=== PATIENT | female | born 1990 | race Caucasian/White ===

== ENCOUNTER → 2019-10-10 15:27 | Outpatient (BNVA) | payer SELFPAY | PROVIDERS: Family Provider Nurse Practitioner Family; PCP Nurse Practitioner Family; Visit Provider Obstetrics & Gynecology | DX: R87.611 Atypical squamous cells cannot exclude high grade squamous intraepithelial lesion on cytologic smear of cervix (ASC-H) (principal); N89.8 Other specified noninflammatory disorders of vagina | CPT/HCPCS: 87210; 88175 ==

== ENCOUNTER 2020-05-19 15:29 | Outpatient (CLI) | payer BC, SELFPAY ==
--- NOTE | 2020-05-19 | USCV_ITS ---
Sallie Palm Age: 30 Gender: F : 1990 Exam Date: 05/19/2020 16:01 Ordering Phys: Ubaldo Paez MD ([email or web address]) Technologist: Elva Spangler Exam Location: [facility] [place] Indication: KNOWN PUL. STENOSIS BP: 106 / 60 HR: 62 Rhythm: Sinus Technical Quality: Adequate MEASUREMENTS (Male / Female) Normal Values 2D ECHO LV Diastolic Diameter PLAX 4.6 cm 4.2 - 5.9 / 3.9 - 5.3 cm LV Systolic Diameter PLAX 3.0 cm LV Chamber Size 3.6 cm IVS Diastolic Thickness 0.7 cm 0.6 - 1.0 / 0.6 - 0.9 cm IVS Systolic Thickness 1.3 cm LVPW Diastolic Thickness 1.0 cm 0.6 - 1.0 / 0.6 - 0.9 cm LVPW Systolic Thickness 1.3 cm RV Chamber Size 2.8 cm LVOT Diameter 2.0 cm LV Ejection Fraction 2D Teich 66.0 % LV Ejection Fraction MOD 2C 67.4 % LV Ejection Fraction 2C AL 67.3 % LA Diameter 3.0 cm LA Width 2.5 cm LA Height 3.5 cm RA Width 3.5 cm RA Height 3.7 cm Aorta at Sinotubular Diameter 2.5 cm M-MODE Aortic Annulus Diameter 3.0 cm LA Ao Ratio MM 1.1 MV E Point Septal Separation 0.3 cm DOPPLER AV Peak Velocity 123.0 cm/s LVOT Peak Velocity 79.0 cm/s AV Area Cont Eq vti 1.8 cm squared AV Area Cont Eq pk 2.0 cm squared MV Area PHT 8.1 cm squared Mitral E to A Ratio 1.3 MV E' Velocity 63.0 cm/s Mitral E to MV E' Ratio 6.7 Mitral E to LV E' Lateral Ratio 5.7 Mitral E to LV E' Septal Ratio 8.3 TR Peak Velocity 150.3 cm/s TR Peak Gradient 9.0 mmHg TR Mean Velocity 114.4 cm/s TR Mean Gradient 5.8 mmHg TR Velocity Time Integral 32.9 cm TV Peak E Velocity 66.0 cm/s Right Atrial Pressure 5.0 mmHg Pulmonary Artery Systolic Pressu 14.0 mmHg PV Peak Velocity 61.0 cm/s RV Acceleration Time 0.2 s RV Ejection Time 0.3 s RV AcT/ET 0.5 FINDINGS Left Ventricle Normal left ventricular size and systolic function, EF 55 %. No regional wall motion abnormalities. Right Ventricle The right ventricle is normal in size and function. Right Atrium The right atrium is normal in size. Left Atrium The left atrium is normal in size. Mitral Valve No gross abnormalities noted Aortic Valve No gross abnormalities noted Tricuspid Valve Trace to mild tricuspid valve regurgitation. Estimated pulmonary artery peak systolic pressure of 14 mmHg Pulmonic Valve Mild pulmonary valve regurgitation. Pericardium Normal pericardium without effusion. Aorta Normal ascending aorta dimension. CONCLUSIONS Normal left ventricular size and systolic function, EF 55 %. No regional wall motion abnormalities. Trace to mild tricuspid valve regurgitation. Estimated pulmonary artery peak systolic pressure of 14 mmHg. Mild pulmonary valve regurgitation. There is no pericardial effusion. There are no intracardiac masses. There are no prior echocardiogram studies to compare. Dr Ubaldo Paez MD [facility] (Electronically Signed) Final Date: 19 May 2020 23:21 S
--- NOTE | 2020-05-26 11:00 | USCV_ITS ---
Sallie Palm Age: 30 Gender: F : 1990 Exam Date: 05/26/2020 11:55 Ordering Phys: Ubaldo Paez MD ([email or web address]) Technologist: Ramsey Fletcher [place] [facility] [place]ication: PULMONIC STENOSIS BP: / HR: 68 Rhythm: Sinus Technical Quality: Good MEASUREMENTS (Male / Female) Normal Values DOPPLER LVOT Peak Velocity 109.0 cm/s PV Peak Velocity 232.0 cm/s RV Acceleration Time 0.1 s RV Ejection Time 0.4 s RV AcT/ET 0.3 FINDINGS Left Ventricle Right Ventricle Right Atrium Left Atrium Mitral Valve Aortic Valve Tricuspid Valve Pulmonic Valve The pulmonic valve Doppler examination was repeated. Significant systolic flow turbulence was noted at the level of the pulmonic valve. Peak velocity of the pulmonic valve is 2.9 cm/s with a peak gradient of 35 mmHg. The mean gradient was around 14 mmHg. Mild pulmonic regurgitation also was noted Pericardium Aorta CONCLUSIONS 1. Features of mild pulmonic valve stenosis with a peak gradient of 35 and a mean gradient of 14 mmHg(peak velocity of 2.9 m/s) 2. Mild pulmonic regurgitation Dr Ubaldo Paez MD [facility] (Electronically Signed) Final Date: 26 May 2020 21:12 S
== END 2020-05-19 15:30 | disposition home or self-care (01) ==
PROVIDERS: Family Provider Nurse Practitioner Family; PCP Nurse Practitioner Family; Visit Provider Internal Medicine Cardiovascular Disease
DX: R07.89 Other chest pain (principal); I37.1 Nonrheumatic pulmonary valve insufficiency; I07.1 Rheumatic tricuspid insufficiency
CPT/HCPCS: 88175; 93306

== ENCOUNTER 2020-05-26 11:32 | Outpatient (CLI) | payer BC, SELFPAY ==
--- NOTE | 2020-05-26 | USCV_ITS ---
Sallie Palm Age: 30 Gender: F : 1990 Exam Date: 05/26/2020 11:55 Ordering Phys: Ubaldo Paez MD Technologist: Ramsey Fletcher [place] [facility] [place]: PULMONIC STENOSIS BP: / HR: 68 Rhythm: Sinus Technical Quality: Good MEASUREMENTS (Male / Female) Normal Values DOPPLER LVOT Peak Velocity 109.0 cm/s PV Peak Velocity 232.0 cm/s RV Acceleration Time 0.1 s RV Ejection Time 0.4 s RV AcT/ET 0.3 FINDINGS Left Ventricle Right Ventricle Right Atrium Left Atrium Mitral Valve Aortic Valve Tricuspid Valve Pulmonic Valve The pulmonic valve Doppler examination was repeated. Significant systolic flow turbulence was noted at the level of the pulmonic valve. Peak velocity of the pulmonic valve is 2.9 cm/s with a peak gradient of 35 mmHg. The mean gradient was around 14 mmHg. Mild pulmonic regurgitation also was noted Pericardium Aorta CONCLUSIONS 1. Features of mild pulmonic valve stenosis with a peak gradient of 35 and a mean gradient of 14 mmHg(peak velocity of 2.9 m/s) 2. Mild pulmonic regurgitation Dr Ubaldo Paez MD [facility] (Electronically Signed) Final Date: 26 May 2020 21:12 MTDD
== END 2020-05-26 11:33 | disposition home or self-care (01) ==
PROVIDERS: PCP Nurse Practitioner Family; Visit Provider Internal Medicine
DX: I37.1 Nonrheumatic pulmonary valve insufficiency (principal)
CPT/HCPCS: 93308

== ENCOUNTER → 2020-07-07 13:09 | Outpatient (BNVA) | payer BC, SELFPAY | PROVIDERS: Family Provider Nurse Practitioner Family; PCP Nurse Practitioner Family; Visit Provider Obstetrics & Gynecology | DX: R87.610 Atypical squamous cells of undetermined significance on cytologic smear of cervix (ASC-US) (principal); R87.612 Low grade squamous intraepithelial lesion on cytologic smear of cervix (LGSIL) | CPT/HCPCS: 81025; 88305 ==

== ENCOUNTER → 2021-05-25 08:32 | Outpatient (BNVA) | payer BC, SELFPAY | PROVIDERS: Family Provider Nurse Practitioner Family; PCP Nurse Practitioner Family; Visit Provider Obstetrics & Gynecology | DX: Z12.4 Encounter for screening for malignant neoplasm of cervix (principal); N93.9 Abnormal uterine and vaginal bleeding, unspecified; N93.0 Postcoital and contact bleeding | CPT/HCPCS: 83525; 84443; 87624 ==

== ENCOUNTER → 2021-07-03 14:24 | Outpatient (BNVA) | payer BC, SELFPAY | PROVIDERS: Family Provider Nurse Practitioner Family; PCP Nurse Practitioner Family; Visit Provider Obstetrics & Gynecology | DX: N93.9 Abnormal uterine and vaginal bleeding, unspecified (principal); N94.10 Unspecified dyspareunia | CPT/HCPCS: 76830; 83036 ==

== ENCOUNTER → 2022-01-21 14:13 | Outpatient (BNVA) | payer BC, SELFPAY | PROVIDERS: Family Provider Nurse Practitioner Family; PCP Nurse Practitioner Family; Visit Provider Obstetrics & Gynecology | DX: R10.2 Pelvic and perineal pain (principal) | CPT/HCPCS: 81025 ==

== ENCOUNTER 2022-03-30 07:26 | Day surgery (SDC) | payer BC, SELFPAY ==
[2022-03-29 09:08] VITALS: BMI 30.4
--- NOTE | 2022-03-29 09:12 | ECG_ITS ---
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 Measurements Intervals [place] Rate: 65 P: 49 OK: 189 QRS: 14 QRSD: 97 T: 48 QT: 383 QTc: 398 Interpretive Statements SINUS RHYTHM LOW QRS VOLTAGE IN PRECORDIAL LEADS [QRS DEFLECTION < 1.0 mV IN CHEST LEADS] INCOMPLETE RIGHT BUNDLE BRANCH BLOCK [90+ ms QRS DURATION, TERMINAL R IN V1/V2, 40+ ms S IN I/aVL/V4/V5/V6] No previous ECG available for comparison Electronically Signed On 03-29-2022 20:36:37 [employer] by Ubaldo Paez M.D. [id number]
--- NOTE | 2022-03-29 09:24 | P.ANESASSM_ITS ---
Pre-Anesthetic Assessment Height/Weight: Height 1.52 m Weight 70.76 kg Preop Diagnosis: irregular menses, bleeding after intercourse Operation Date: 03/30/22 09:05 Proposed Procedures p Hysteroscopy, dilation and curettage with Myosure, Conization of cervix 30547 N93.9(Not Applicable) - Tiffanie Mak MD s Dilation And Curettage (D&C)(Not Applicable) - Tiffanie Mak MD s Cervical Conization(Not Applicable) - Tiffanie Mak MD Familial anesthetic complications: None Social Tobacco and No alcohol Exam alert, oriented x 3, clear to auscultation bilaterally and regular rate & rhythm Airway Mallampati: Class II Dentition: full CV/HEM pulmonic stenosis - not having any cardiac symptom, spoke with Dr. Paez. Since not having any symptoms and based on 2020 echo, no further investigation needed Anesthetic Plan ASA status: 2 Anesthesia: General Risk of > 500 ml blood loss (7ml/kg in children): No Medications/Allergies Home Medications Medication Instructions Recorded Confirmed Last Taken Type No Known Home Medications 03/29/22 03/29/22 Unknown History Allergies Allergy/AdvReac Type Severity Reaction Status Date / Time pseudoephedrine AdvReac Unknown increase Verified 03/25/22 15:25 heart rate guaifenesin [From Mucinex] AdvReac increased Verified 03/25/22 15:25 heart rate [facility] Anesthesia Medical History Anxiety Depression Pulmonic stenosis Tobacco abuse Surgical History No pertinent past surgical history Family History Grandfather Hypercholesteremia paternal Diabetes paternal Unknown Hypertension paternal side in general Heart disease paternal and maternal side Cancer breast and cervical Social History Smoking and tobacco status: current some day smoker e-cigarettes E-Cigarette Details: vaporizer device Alcohol intake: current Alcohol intake frequency: holidays/special occasions only Female Reproductive History Date of last menstrual period: 02/18/22 Data Anesthesia Cardiac Studies: Echocardiogram Limited Views 05/26/20 Echocardiogram Ultrasound 05/19/20 Cardiac Event Monitor 04/29/20
[2022-03-30] VITALS (14 sets, daily range): BP systolic 102–126; BP diastolic 64–97; PULSE 74–112; RESP 16–18; TEMP 36.2–36.9; O2SAT 95–100
[2022-03-30 07:40] LABS: OR HCG Qualitative Urine Negative (Negative)
[2022-03-30] MEDS: sodium chloride 0.9% 1,000 ML 30 ML IV (07:46)
--- NOTE | 2022-03-30 07:59 | P.ANESUD_ITS ---
Pre-Anesthetic Update Pre-Anesthetic Assessment: Date of Surgery/Procedure: 03/30/22 Preop Zainab gnosis: irregular menses, bleeding after intercourse Proposed Procedure: Operation Date: 03/30/22 09:05 Proposed Procedures p Hysteroscopy, dilation and curettage with Myosure, Conization of cervix 88077 N93.9(Not Applicable) - Tiffanie Mak MD s Dilation And Curettage (D&C)(Not Applicable) - Tiffanie Mak MD s Cervical Conization(Not Applicable) - Tiffanie Mak MD Any changes to Pre-Anesthetic Assessment?: No Last Intake: Intake Last Liquid Date 03/29/22 Last Liquid Time 22:00 Last Solid Date 03/29/22 Last Solid Time 16:00 Vitals: Temperature 98.5 F 03/30/22 07:43 Temperature Source Temporal Artery S can 03/30/22 07:43 Pulse Rate 74 03/30/22 07:43 Respiratory Rate 18 03/30/22 07:43 Blood Pressure 108/76 03/30/22 07:43 Blood Pressure Shelley n 86 03/30/22 07:43 Pulse Oximetry 96 03/30/22 07:43 Oxygen Delivery Me thod 03/30/22 07:43 Exam: Pre-Anes Outpt Exam: alert, oriented x 3, clear to auscultation bilaterally and regular rate & rhythm Cardiac Studies: Echocardiogram Limited Views 05/26/20 Echocardiogram Ultrasound 05/19/20 Cardiac Event Monitor 04/29/20
--- NOTE | 2022-03-30 08:53 | W.PM.OPSUD ---
Surgery/Procedure H&P Update DATE OF PROCEDURE: March 30, 2022 DATE H&P PERFORMED: 03/25/22 H&P UPDATE INFORMATION: I have reviewed H&P completed within last 30 days, I have examined patient prior to procedure and No changes to prior documentation PREOP DIAGNOSIS: irregular menses, bleeding after intercourse PLANNED PROCEDURE: Operation Date: 03/30/22 09:05 Proposed Procedures p Hysteroscopy, dilation and curettage with Myosure, Conization of cervix 05081 N93.9(Not Applicable) - Tiffanie Mak MD s Dilation And Curettage (D&C)(Not Applicable) - Tiffanie Mak MD s Cervical Conization(Not Applicable) - Tiffanie Mak MD Related Problem List Diagnoses (1) Bleeding after intercourse: (2) Irregular menses:
[2022-03-30] MEDS: ceFAZolin 2,000 MG in sodium chloride 0.9% (plus) 50 ML 100 MG IV (09:02)
--- NOTE | 2022-03-30 09:54 | PM.OP ---
Operative Report Date of procedure: March 30, 2022 Pre-op diagnosis: Preop Diagnosis irregular menses, bleeding after intercourse Post-op diagnosis: same Procedure done: hysteroscopy, D&C with myosure, cauterization of ectropion Specimens removed/disposition: endometrial curettings to pathology Surgeon: Tiffanie Mak Anesthesia: MAC Estimated blood loss (mL): 0 IV fluids (mL): 600 Urine output (mL): 0 Complications: none Condition: stable Disposition: PACU Procedure: The patient was taken to the operating room where monitored anesthesia was administered and to be adequate. She was prepped and draped in the normal sterile fashion in the dorsal lithotomy position in [facility]. A weighted speculum was placed into the vagina and the anterior lip of the cervix grasped with a single-tooth tenaculum. The uterus was sounded to 7 cm. The cervix was dilated to 16 Thai. The hysteroscope was advanced into the endometrial cavity. There was excessive tissue and polyps visualized. The MyoSure device was activated and the tissue was removed. Pictures were taken pre and post procedure. Attention was then turned to the cervical portion of the procedure. The ectropion was identified and cauterized with the bovie cautery. There was excellent hemostasis. All instruments were removed. The patient tolerated the procedure well. Sponge lap and needle counts were correct x3. She was taken to the recovery room in stable condition.
[2022-03-30] MEDS: ketorolac 30 mg/mL INJ (09:56)
[2022-03-30] MEDS: fentaNYL 50 mcg/mL INJ 2mL 100 MCG IVP (09:56)
--- NOTE | 2022-03-30 10:00 | PM.DCS ---
Discharge Providers Date of Admission: 03/30/22 Date of Discharge: March 30, 2022 Attending Provider at Admission: Dr. Mak Attending Provider at Discharge: Tiffanie Mak MD Primary Care Provider: Justyna Bonner APN Diagnoses at Discharge Discharge Diagnosis (1) Bleeding after intercourse: Status: Acute (2) Irregular menses: Status: Acute Reason for Visit Reason for Visit: abnormal uterine and vaginal bleeding, unspecified Hospital Course Hospital Course The patient was admitted for surgery. She did well postoperatively and was ready for discharge. Discharge Data Studies Completed and Pending Pending at discharge Category Date Time Status Pathology: Surgical [PTH] Routine Pth 03/30/22 09:54 Ordered Laboratory Results Urine HCG, Qual Negative (Negative) 03/30/22 07:32 Vitals Last Vital Signs Temp 98.5 F 03/30/22 07:43 Pulse 74 03/30/22 07:43 Resp 18 03/30/22 07:43 BP 108/76 03/30/22 07:43 Pulse Ox 96 03/30/22 07:43 O2 Del Method 03/30/22 07:43 Discharge Plan Discharge Patient Disposition: Home Condition: Stable Prescriptions: Continued No Known Home Medications Discharge Orders: Discharge Order (Routine); Ordered 03/30/22 Ordered By: Tiffanie Mak Referrals: Tiffanie Mak MD [Physician] - Patient Instructions: Post Anesthesia Care Discharge Attestations Time Spent in Discharge Care*: less than 30 min Quality Metrics Clinical Quality Measures [ No reported AMI, CVA or VTE this stay] Coding Level of Care Code Acute Chg FW DC note Diagnoses Bleeding after intercourse N93.0 Irregular menses N92.6
[2022-03-30] MEDS: ondansetron 2 mg/ML SDV 2 mL 4 MG IVP (10:04)
[2022-03-30] MEDS: fentaNYL 50 mcg/mL INJ 2mL IVP (10:06)
[2022-03-30] MEDS: HYDROmorphone 1 mg/mL INJ 1 mL 0.5 MG IVP (10:17)
--- NOTE | 2022-03-30 14:08 | ANE.PACU2 ---
Inpatient post-anesthesia follow up: Airway intact: Yes Vital signs: Temperature 97.6 F Pulse Rate 76 Respiratory Rate 18 Blood Pressure 107/74 Pulse Oximetry 100 Oxygen Delivery Me thod Room Air Oxygen Flow Rate 6 Fraction of Inspir ed Oxygen Hydration adequate: Yes Nausea and vomiting: No Pain level: 1 Mental status: Baseline
== END 2022-03-30 11:24 | disposition home or self-care (01) ==
PROVIDERS: Anesthesiology; PCP Nurse Practitioner Family; Visit Provider Obstetrics & Gynecology
PROC: 0UDB8ZZ Extraction of Endometrium, Via Natural or Artificial Opening Endoscopic (ICD-10-PCS; CPT 58558; principal; 2022-03-30 08:55)
PROC: (CPT 58120; 2022-03-30 08:55)
PROC: 0UBC7ZZ Excision of Cervix, Via Natural or Artificial Opening (ICD-10-PCS; CPT 57520; 2022-03-30 08:55)
DX: N92.6 Irregular menstruation, unspecified (principal); N93.0 Postcoital and contact bleeding; F17.290 Nicotine dependence, other tobacco product, uncomplicated
CPT/HCPCS: 58558; 81025; 84703; 88305; 93005; J0690; J1100; J1170; J1885; J2405; J2704; J3010; J7030

== ENCOUNTER → 2023-02-22 15:07 | Outpatient (BNVA) | payer BC, SELFPAY | PROVIDERS: PCP Nurse Practitioner Family; Visit Provider Nurse Practitioner Family | DX: N93.0 Postcoital and contact bleeding (principal); N89.8 Other specified noninflammatory disorders of vagina | CPT/HCPCS: 81003; 87491; 87591; 87661 ==

== ENCOUNTER → 2023-06-29 16:17 | Outpatient (BNVA) | payer BC, SELFPAY | PROVIDERS: PCP Nurse Practitioner Family; Visit Provider Nurse Practitioner Women's Health | DX: Z11.3 Encounter for screening for infections with a predominantly sexual mode of transmission (principal); Z13.0 Encounter for screening for diseases of the blood and blood-forming organs and certain disorders involving the immune mechanism; Z13.1 Encounter for screening for diabetes mellitus; Z13.228 Encounter for screening for other metabolic disorders; Z12.4 Encounter for screening for malignant neoplasm of cervix; N64.52 Nipple discharge | CPT/HCPCS: 80053; 83036; 84146; 84439; 84443; 85025; 86592; 86803; 87340; 87491; 87591; 87624; 87806 ==

== ENCOUNTER → 2023-07-05 08:10 | Outpatient (BNVA) | payer BC, SELFPAY | PROVIDERS: PCP Nurse Practitioner Family; Visit Provider Nurse Practitioner Women's Health | DX: N64.52 Nipple discharge (principal) | CPT/HCPCS: 84146 ==

== ENCOUNTER 2023-07-28 15:34 | Outpatient (CLI) | payer BC, SELFPAY ==
--- NOTE | 2023-07-28 16:00 | MR_ITS ---
WS: [id number] MRI HEAD WITH CONTRAST TECHNIQUE: Sagittal T1, T2 axial, T2 axial FLAIR, axial susceptibility weighted imaging, axial diffus ion weighted images, and coronal T2 images were obtained. Pre and post-T1 axial and post T1 coronal i mages. ADC and FSPGR images. CLINICAL INFORMATION: R79.89 - Other specified abnormal findings of blood chemi... COMPARISON: None. FINDINGS: No evidence of restricted diffusion to suggest acute ischemia. Ventricular system and basilar cistern s are patent. Normal posterior fossa. Normal vascular flow voids at the skull base. No extra-axial fl uid collections. No evidence of mass or mass effect. Paranasal sinuses and mastoid air cells are well aerated. Normal posterior nasopharynx. No suspicious intracranial signal abnormalities. No hemosiderin on the susceptibly weighted images. N ormal optic chiasm and pituitary infundibulum. Temporal lobe and hippocampal formations are normal in appearance. Normal cavernous sinuses and Meckel's cave. No abnormal intracranial enhancement. Normal dural venous sinuses. Incidental venous angioma in the c erebellum. Slight fullness in the RIGHT aspect of the pituitary. This is indeterminant on this standard MRI head . Recommend MRI of the head without and with gadolinium enhancement with pituitary protocol and dynam ic pituitary imaging especially if suspicion for microadenoma MR/MR head wo/w con [id number] IMPRESSION: 1. No evidence of restricted diffusion to suggest acute ischemia. 2. No suspicious intracranial signal normalities. 3. No hemosiderin on the susceptibly weighted images. 4. No abnormal intracranial enhancement. 5. Normal optic chiasm and pituitary infundibulum. 6. 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 7. Slight fullness in the RIGHT aspect of the sella is indeterminate and could be incidental but incompletely evaluated on this study. Recommend further eval uation with MRI of the head without and with gadolinium enhanced with pituitary protocol and dynamic pituitary imaging, especially if clinical or laboratory s uspicion for microadenoma.
[2023-07-28] MEDS: gadobenate dimeglumine 20 mL vial IV (16:14)
== END 2023-07-28 15:35 | disposition home or self-care (01) ==
LOC: RAD 15:36
PROVIDERS: PCP Nurse Practitioner Family; Visit Provider Nurse Practitioner Women's Health
DX: R79.89 Other specified abnormal findings of blood chemistry (principal); N64.52 Nipple discharge
CPT/HCPCS: 70553; A9577

== ENCOUNTER 2024-08-06 12:03 | Outpatient (CLI) | payer MEDICAID, SELFPAY ==
--- NOTE | 2024-08-06 12:05 | USCV_ITS ---
Sallie Palm Age: 34 Gender: F : 1990 Exam Date: 08/06/2024 12:27 Ordering Phys: Alejo Castellano MD Technologist: Exam [place] [facility] [place]ication: murmur BP: 120 / 70 HR: 104 Rhythm: Sinus Technical Quality: Adequate MEASUREMENTS (Male / Female) Normal Values 2D ECHO LV Diastolic Diameter PLAX 4.2 cm 4.2 - 5.9 / 3.9 - 5.3 cm IVS Diastolic Thickness 0.8 cm 0.6 - 1.0 / 0.6 - 0.9 cm IVS Systolic Thickness 1.1 cm LVPW Diastolic Thickness 1.3 cm 0.6 - 1.0 / 0.6 - 0.9 cm LVPW Systolic Thickness 1.5 cm LVOT Diameter 2.0 cm LV Ejection Fraction 2D Teich 64.6 % LV Ejection Fraction MOD 4C 66.6 % LV Ejection Fraction MOD 2C 57.1 % LV Ejection Fraction 2C AL 54.9 % LA Diameter 3.1 cm RA Systolic Volume 4C AL 17.0 ml RA Systolic Volume 4C MOD 17.1 ml Aorta at Sinotubular Diameter 2.4 cm M-MODE LA Ao Ratio MM 1.3 AV Cusp Separation MM 2.0 cm DOPPLER AV Peak Velocity 129.0 cm/s LVOT Peak Velocity 81.0 cm/s AV Area Cont Eq vti 2.7 cm squared AV Area Cont Eq pk 2.0 cm squared MV Peak Velocity 89.0 cm/s MV Area PHT 8.0 cm squared Mitral E to A Ratio 0.7 TV Peak Velocity 159.5 cm/s TR Peak Velocity 160.0 cm/s TR Peak Gradient 10.2 mmHg TV Peak E Velocity 90.0 cm/s PV Peak Velocity 202.0 cm/s FINDINGS Left Ventricle Normal LV size ejection fraction of 60%. Mild hypokinesia of the basal septum Right Ventricle The right ventricle is normal in size and function. Right Atrium The right atrium is normal in size. Left Atrium The left atrium is normal in size. Mitral Valve No gross abnormalities noted Aortic Valve Structurally normal trileaflet aortic valve. Tricuspid Valve Structurally normal tricuspid valve. Pulmonic Valve Trace pulmonary valve regurgitation. Elevated velocities the pulmonic valve of 2.02 m/s with a peak gradient of 16 mmHg Pericardium Normal pericardium without effusion. Aorta Normal ascending aorta dimension. IVC The inferior vena cava appears normal. CONCLUSIONS Normal LV size ejection fraction of 60%. Mild hypokinesia of the basal septum. Mild pulmonic valve stenosis with a peak velocity of 2.02 m/s and a peak gradient of 16 mmHg Trace pulmonary valve regurgitation. There is no pericardial effusion. There are no intracardiac masses. Normal cardiac chamber sizes Compared to the previous study from 05/26/2020, there may not be a significant change. Doppler signals are of suboptimal quality. Dr Ubaldo Paez MD [facility] (Electronically Signed) Final Date: 08 Aug 2024 09:11 S
== END 2024-08-06 12:04 | disposition home or self-care (01) ==
LOC: RAD 12:04
PROVIDERS: PCP Nurse Practitioner Family; Visit Provider Family Medicine
DX: I37.0 Nonrheumatic pulmonary valve stenosis (principal); R93.1 Abnormal findings on diagnostic imaging of heart and coronary circulation
CPT/HCPCS: 93306

== ENCOUNTER 2024-09-24 09:48 | Outpatient (CLI) | payer MEDICAID, SELFPAY ==
[2024-09-24 09:56] VITALS: RESP 18; BMI 32.0
[2024-09-24 10:10] VITALS: BP 116/78; PULSE 93
[2024-09-24 10:25] VITALS: BP 117/74; PULSE 87
[2024-09-24 10:40] VITALS: BP 115/72; PULSE 106
[2024-09-24 10:53] VITALS: BP 115/72; PULSE 106; RESP 16; O2SAT 98
== END 2024-09-24 10:53 | disposition home or self-care (01) ==
LOC: OPOB 09:52 → OBGYN 09:53
PROVIDERS: PCP Nurse Practitioner Family; Visit Provider Family Medicine
DX: O26.899 Other specified pregnancy related conditions, unspecified trimester (principal); Z3A.00 Weeks of gestation of pregnancy not specified; N89.8 Other specified noninflammatory disorders of vagina; R10.9 Unspecified abdominal pain
CPT/HCPCS: 59025; 83986; 99211

== ENCOUNTER 2024-10-05 09:15 | Inpatient (IN) | payer MEDICAID, SELFPAY ==
[2024-10-05] VITALS (46 sets, daily range): BP systolic 103–145; BP diastolic 55–80; PULSE 52–83; RESP 18; TEMP 30.8–35.9; O2SAT 99–100
[2024-10-05 09:08] LABS: Hematocrit 29.3 % (36-47); Hemoglobin 9.00 g/dL (11.27-16.99); Mean Corpuscular HGB Conc 30.7 g/dL (30-55); Mean Corpuscular Hemoglobin 23.7 pg (27-33); Mean Corpuscular Volume 77.1 fl (85-98); Nucleated Red Blood Cells % 0.8 %; Platelet Count 372 10^3/cmm (157-399); Red Blood Count 3.80 10^6/uL (3.85-5.65); White Blood Count 11.07 10^3/uL (3.29-11.43)
[2024-10-05] MEDS: fentaNYL 50 mcg/mL INJ 2mL IVP (09:40)
[2024-10-05] MEDS: ROPivacaine premix 200 MG/100 ML PREMIX 10 MG EPIDURAL (10:16)
--- NOTE | 2024-10-05 10:21 | ANES.PREANE2 ---
Pre-Anesthetic Assessment Height/Weight: Height 1.52 m Pulse Resp BP Pulse Ox 65 18 112/65 100 10/05/24 10:17 10/05/24 09:40 10/05/24 10:17 10/05/24 10:05 Preop Diagnosis: IUP Epidural Familial anesthetic complications: none Was Beta Romeo taken within 24 hours: N/A Was Clonidine taken within 24 hours: N/A Last intake: > 8 hrs Social No alcohol and No tobacco Exam alert, oriented x 3, clear to auscultation bilaterally and regular rate & rhythm Airway Mallampati: Class II Dentition: full CV/HEM Pulmonic stenosis Anesthetic Plan ASA status: 3 Anesthesia: Regional (specify below) Risk of > 500 ml blood loss (7ml/kg in children): Yes, adequate IV access and fluids planned Other Pertinent Information Has had prior epidurals, not on blood thinners Medications/Allergies Home Medications ?Medication ?Instructions ?Recorded ?Confirmed ?Last Taken ?Type bupropion HCl 75 mg tablet 150 mg PO .am 02/22/23 06/29/23 Unknown History L.acid,gasseri,plant,rham-B.animalis-cran cap PO 06/29/23 06/29/23 Unknown History 5 billion cell-250mg capsule (up4 Probiotics Women's) fluoxetine 10 mg capsule (Prozac) 10 mg PO DAILY 06/29/23 06/29/23 Unknown History valacyclovir 500 mg tablet See Rx Instructions .Route 01/30/24 Unknown Rx .COMPLEX #30 tabs Allergies Allergy/AdvReac Type Severity Reaction Status Date / Time pseudoephedrine AdvReac Unknown increase Verified 11/13/23 18:32 heart rate guaifenesin (From Mucinex) AdvReac increased Verified 11/13/23 18:32 heart rate Current Medications Generic Name Dose Route Start Last Admin Trade Name Freq PRN Reason Stop Dose Admin Fentanyl 25 - 100 mcg 10/05/24 08:49 10/05/24 09:40 Fentanyl 50 Mcg/Ml Inj 2ml IVP 25 mcg Q1H PRN Administration SEVERE [employer] Dextrose/Lactated Ringer's 1,000 mls @ 125 mls/hr 10/05/24 09:00 10/05/24 10:16 Dextrose 5%-Lactated Ringers IV 125 mls/hr .Q8H JAY Administration Lactated Ringer's 1,000 mls @ 999 mls/hr 10/05/24 08:49 10/05/24 09:09 Lactated Ringers IV 999 mls/hr .Q1H1M PRN Administration See label comments Ropivacaine 200 mg in 100 mls @ 10 mls/hr 10/05/24 09:30 10/05/24 10:16 Naropin Premix EPIDURAL 10 mls/hr .Q10H JAY Administration [facility] Anesthesia Medical History (Updated 07/07/23 @ 08:58 by Lili Montague APN, SOL[place]) Irregular menses Dyspareunia, female Depression Tobacco abuse Anxiety Pulmonic stenosis Surgical History (Updated 06/29/23 @ 15:41 by Lili Montague APN, [place]) History of hysteroscopy (~03/30/22) with D&C; for irregular bleeding and postcoital bleeding; treated large ectropion. Performed by [facility] at [facility] Family History Grandfather Hypercholesteremia paternal Diabetes paternal Unknown Hypertension paternal side in general Heart disease paternal and maternal side Cancer breast and cervical Data Anesthesia 10/05/24 08:50 Short CBC 10/05/24 Range/Units 08:50 WBC 11.07 (3.29-11.43) 10^3/uL Hgb 9.00 L (11.27-16.99) g/dL Hct 29.3 L (36-47) % MCV 77.1 L (85-98) fl Plt Count 372 (157-399) 10^3/cmm Neut % (Auto) 66.0 % Neut # (Auto) 7.32 (1.8-7.7) 10^3/uL Blood Bank 10/05/24 08:50 Blood Type A Positive Rho(D) Type Rh positive Antibody Screen Negative Cardiac Studies: Echocardiogram 08/06/24 Echocardiogram Limited Views 05/26/20 Echocardiogram Ultrasound 05/19/20 Cardiac Event Monitor 04/29/20 Anesthesia Procedures Epidural Time Out Performed: Yes Consents Signed: Procedure Consent Consent: requested by attending/covering physician, from patient, from other, risks and benefits reviewed and patient agrees to proceed Lumbar Level: L3-L4 Epidural position: sitting Epidural procedure: sterile prep of area, 1% lidocaine to numb the area, 18 g needle, negative for paresthesia passed, neg for paresthesia, test dose given, 1.5% xylocaine 1:200k epi (5 ml), 0.2% Ropivacaine bolus ml (5 ml), placed PCEA, no systemic response, sterile dressing applied, L.U.D. no apparent complications and 0.2% Ropiavacaine @ mls/hr (10) Additional Comments: LOUIS at 6 cm,t hreaded to 12 cm. patient reported improved pain of contractions
[2024-10-05] MEDS: alum-mag-hydroxide-sime 30 mL UDC PO ×2 (10:25→19:32)
[2024-10-05] MEDS: oxytocin 30 UNIT/500 ML BAG 600 UNIT IV (11:38)
--- NOTE | 2024-10-05 11:53 | PM.OPHPUD ---
Labor & Delivery H&P Update Date of Procedure: October 05, 2024 Date H&P Performed: 10/04/24 Changes to previous documentation: The patient has spontaneous rupture of membranes is having consistent contractions and making cervical change. Admission Diagnosis: 34-year-old 3 para 2-0-0-2 at 39 weeks estimated gestational age presenting to the hospital with spontaneous rupture membranes and an active labor. History of HSV currently treated prophylactically with valacyclovir for the last 3 weeks. Preop diagnosis: IUP Other information: Sallie is a pleasant 34-year-old female who presents to the hospital for active labor. Her has been relatively unremarkable. As previously stated she does have a history of HSV and has been on prophylactic valacyclovir. She does not have any active lesions. She Josefina presented with spontaneous rupture membranes just prior to arrival to hospital. Her labs are as follows. Her blood type is a positive. Her antibody screen was negative. She passed her 3-hour glucose screen. She is rubella immune. She is GBS negative. The remainder of her infectious disease profile is within normal limits. Related Problem List Diagnoses 1. 39 weeks gestation of : 2. History of herpes simplex infection: 3. Spontaneous rupture of membranes: 4. Meconium in amniotic fluid affecting management of mother: A&P Assessment and plan 1. 39 weeks gestation of : I anticipate routine labor and vaginal delivery. Status: Acute 2. History of herpes simplex infection: Status: Acute 3. Spontaneous rupture of membranes: Status: Acute 4. Meconium in amniotic fluid affecting management of mother: Status: Acute PDMP PDMP Reviewed: Not Reviewed
--- NOTE | 2024-10-05 12:01 | P.PCNOB_ITS ---
Delivery Note: Date of delivery: October 05, 2024 Pre-delivery diagnoses: 1. 34-year-old 3 para 2-0-0-2 a t 39 weeks estimated gestational age presenting with spontaneous rupture membranes and meconium Post-delivery diagnoses: Status post spontaneous vaginal delivery Procedure: Spontaneous vaginal delivery Delivering Physician: Alejo Castellano Estimated blood loss (mL): 100 Pre-Delivery Course: The patient presented to the hospital with spontaneous rupture of membranes. Meconium was noted. She was having consistent painful contractions and was making cervical change. An epidural was placed. She progressed to complete without difficulty. Delivery: DELIVERY: The patient progressed to complete without difficulty. She delivered a female with a weight of 7 pounds 11 ounces with Apgars of 9, 9. The baby was delivered from the EBENEZER position. The baby's mouth and nose were suctioned at the site of the perineum. The baby was then completely delivered and placed on the mother's abdomen. The cord was then clamped and cut 1 minute after delivery. There was a nuchal cord x 2. Meconium was noted. The placenta and 3 vessel cord were delivered intact shortly thereafter. The perineum and vaginal vault were carefully examined. A relatively superficial second-degree posterior midline tear was noted. It was repaired with 3-0 Vicryl in a running subcuticular stitch in the usual fashion.. Both the mother and the baby were in stable condition. Post-Delivery Status: Good History History History 3 Term 3 0 Miscarriages/Ectopic 0 Living Children 3 A&P Assessment and plan 1. Spontaneous vaginal delivery: I anticipate routine care 2. 39 weeks gestation of : 3. Meconium in amniotic fluid affecting management of mother: PDMP PDMP Reviewed: Not Reviewed Coding Level of Care Code Acute Code for Chg Fwd Diagnoses Spontaneous vaginal delivery O80 39 weeks gestation of Z3A.39 Meconium in amniotic fluid affecting management of mother O36.8990
--- NOTE | 2024-10-05 14:45 | PC.NURSE ---
Patients IV infiltrated. Patient did not want a new IV. Spoke with Dr. Castellano. Orders given to DC IV.
[2024-10-05 17:47] LABS: Hematocrit 26.2 % (36-47); Hemoglobin 8.10 g/dL (11.27-16.99); Mean Corpuscular HGB Conc 30.9 g/dL (30-55); Mean Corpuscular Hemoglobin 24.1 pg (27-33); Mean Corpuscular Volume 78.0 fl (85-98); Platelet Count 322 10^3/cmm (157-399); Red Blood Count 3.36 10^6/uL (3.85-5.65); White Blood Count 14.58 10^3/uL (3.29-11.43)
[2024-10-05] MEDS: HYDROcodone-acetaminophen 5-325 mg Tablet PO (20:32)
[2024-10-06 05:29] VITALS: BP 117/59; PULSE 62
--- NOTE | 2024-10-06 06:14 | PM.OBGYDC ---
Discharge Providers [employer]EL[employer] Date of Admission: 10/05/24 09:15 Date of Discharge: 10/06/24 Attending Provider at Admission: Alejo Castellano MD Attending Provider at Discharge: Alejo Castellano MD Primary Care Provider: Lacy Guerrier APN Diagnoses at Discharge Discharge Diagnosis 1. Spontaneous vaginal delivery: 2. 39 weeks gestation of : 3. Meconium in amniotic fluid affecting management of mother: Other Information Additional DC diagnoses/information: The patient is taking OTC vitamins. Reason for Visit Reason for Visit: Ctx Hospital Course Hospital Course The patient presented to the hospital with spontaneous rupture of membranes. She was noted to have meconium. She progressed to complete and had an unremarkable delivery of a healthy appearing female . Her course was also unremarkable. She breast-fed well. Her bleeding was within normal limits. She had more pain than usual, but she was able to function appropriately. She had pain in her breasts, her uterus, and her vagina. She did not tolerate hydrocodone. She is elected to stay with ibuprofen 3 times a day. Information Peripartum Data: Delivery Method: Vaginal Physical Exam Narrative: The patient is alert. She appears comfortable. Her heart has a regular rate and rhythm with no murmurs appreciated. Lungs are clear to auscultation bilaterally. Her fundus is firm and below the umbilicus. History History History 3 Term 3 0 Miscarriages/Ectopic 0 Living Children 3 Discharge Data Studies Completed and Pending Laboratory Results WBC 14.58 10^3/uL (3.29-11.43) H 10/05/24 15:15 RBC 3.36 10^6/uL (3.85-5.65) L 10/05/24 15:15 Hgb 8.10 g/dL (11.27-16.99) L 10/05/24 15:15 Hct 26.2 % (36-47) L 10/05/24 15:15 MCV 78.0 fl (85-98) L 10/05/24 15:15 MCH 24.1 pg (27-33) L 10/05/24 15:15 MCHC 30.9 g/dL (30-55) 10/05/24 15:15 RDW 16.3 % (12.1-15.1) H 10/05/24 15:15 Plt Count 322 10^3/cmm (157-399) 10/05/24 15:15 MPV 10.4 fL (7.4-10.4) 10/05/24 15:15 Neut % (Auto) 66.0 % 10/05/24 08:50 Lymph % (Auto) 25.7 % 10/05/24 08:50 [place] % (Auto) 6.0 % 10/05/24 08:50 Eos % (Auto) 1.0 % 10/05/24 08:50 Baso % (Auto) 0.4 % 10/05/24 08:50 Neut # (Auto) 7.32 10^3/uL (1.8-7.7) 10/05/24 08:50 Lymph # (Auto) 2.8 10^3/uL (0.8-4.8) 10/05/24 08:50 [place] # (Auto) 0.7 10^3/uL (0.2-0.9) 10/05/24 08:50 Eos # (Auto) 0.1 10^3/uL (0.0-0.8) 10/05/24 08:50 Baso # (Auto) 0.0 10^3/uL (0.0-0.1) 10/05/24 08:50 Nucleated RBC % (auto) 0.8 % 10/05/24 08:50 Nucleated RBCs # 0.1 /100WBC 10/05/24 08:50 Blood Type A Positive 10/05/24 08:50 Rho(D) Type Rh positive 10/05/24 08:50 Antibody Screen Negative 10/05/24 08:50 Vitals Last Vital Signs Temp 96.6 F L 10/05/24 14:15 Pulse 62 10/06/24 05:29 Resp 18 10/05/24 16:19 BP 117/59 10/06/24 05:29 Pulse Ox 100 10/05/24 10:05 O2 Del Method Room Air 10/05/24 08:40 Results Labs OB ([facility]): Blood Type A Positive 10/05/24 Antibody Screen Negative 10/05/24 Hct, (36-47) 26.2 % L 10/05/24 Hgb, (11.27-16.99) 8.10 g/dL L 07/18/25 Rho(D) Type Rh positive 10/05/24 Plt Count, (157-399) 322 10^3/cmm 10/05/24 Hep Bs Antigen, (Nonreactive) Non-reactive 06/29/23 Hepatitis C Antibody, (Nonreactive) Non-reactive 06/29/23 RPR, (Nonreactive) Nonreactive 06/29/23 HIV 1&2 Ab & HIV 1 Ag, (Non-Reactiv) Non-reactive 06/29/23 TSH, (0.27-4.20) 1.40 uIU/mL 06/29/23 Free T4, (0.82-1.77) 1.45 ng/dL 06/29/23 C.trachomatis RNA (TMA), (NOT DETECTED) Not detected 06/29/23 N.gonorrhoeae RNA (TMA), (NOT DETECTED) Not detected 06/29/23 T. vaginalis Amp RNA, (NOT DETECTED) Not detected 06/29/23 Chlamydia/GC Comment See note 06/29/23 Hemoglobin A1c, (4.0-6.0) 4.7 % 06/29/23 Pap Smear Interpret See note 06/29/23 Prolactin, (4.8-23.3) 30.37 ng/mL H 07/05/23 Discharge Plan Discharge Patient Disposition: Home Condition: Stable Prescriptions: New ibuprofen 800 mg Tablet 800 mg PO TID 45 Days Qty: 135 0RF Discontinued bupropion HCl 75 mg tablet 150 mg PO .am up4 Probiotics Women's 5 billion cell- 250 mg capsule 1 cap PO 1XD fluoxetine [Prozac] 10 mg capsule 10 mg PO DAILY valacyclovir 500 mg tablet See Rx Instructions .ROUTE .COMPLEX Qty: 30 0RF Dose Instruction: TAKE ONE TABLET BY MOUTH DAILY Rx Instructions: TAKE ONE TABLET BY MOUTH DAILY Discharge Order = DC NOW: Discharge Order (Routine); Ordered 10/06/24 Ordered By: Alejo Castellano Referrals: Alejo Castellano MD [Physician, Family Practice] - 7-10 days Discharge Diet: Usual diet Discharge Activity: Limit activity as instructed Patient Instructions: Opioid Safety, Patient Portal & Lucian Instructions Discharge Attestations [employer] DEVEL[employer] Time Spent in Discharge Care*: less than 30 min Coding Level of Care Code Acute Code for Chg Fwd Diagnoses Spontaneous vaginal delivery O80 39 weeks gestation of Z3A.39 Meconium in amniotic fluid affecting management of mother O36.8935
[2024-10-06] MEDS: HYDROcodone-acetaminophen 5-325 mg Tablet PO (07:16)
[2024-10-06 07:17] VITALS: BP 120/83; PULSE 83; TEMP 35.9
--- NOTE | 2024-10-06 08:00 | ANE.PACU2 ---
Inpatient post-anesthesia follow up: Airway intact: Yes Vital signs: Temperature 96.6 F Pulse Rate 65 Respiratory Rate 17 Blood Pressure 106/55 Pulse Oximetry 98 Oxygen Delivery Me thod Room Air Oxygen Flow Rate Fraction of Inspir ed Oxygen Hydration adequate: Yes Nausea and vomiting: No Pain level: 1 Mental status: Baseline Epidural Start/End: Epidural Start Date: 10/05/24 Epidural Start Time: 09:55 Epidural End Date: 10/05/24 Epidural End Time: 12:58
[2024-10-06] MEDS: PRENATAL VIT NO.130/IRON/FOLIC 1 EACH TABLET PO (09:29)
[2024-10-06 09:30] VITALS: BP 118/70; PULSE 77
[2024-10-06 13:04] VITALS: BP 106/55; PULSE 65
[2024-10-06 13:09] VITALS: BP 106/55; PULSE 65; RESP 17; O2SAT 98
== END 2024-10-06 13:09 | disposition home or self-care (01) | DRG 807 ==
LOC: OPOB 09:16 → OBGYN 09:16
PROVIDERS: Admitting Provider Family Medicine; PCP Nurse Practitioner Family; Visit Provider Family Medicine
DX: O77.0 Labor and delivery complicated by meconium in amniotic fluid (principal); Z37.0 Single live birth; O70.1 Second degree perineal laceration during delivery; Z3A.39 39 weeks gestation of pregnancy
CPT/HCPCS: 36415; 59409; 85025; 85027; 86850; 86900; 96374; J2590; J2795; J3010; J7120; J7121; J9999